=== PATIENT | male | born 1935 | race Caucasian/White ===

== ENCOUNTER 2017-09-11 21:18 | Inpatient (IN) | payer MEDICARE, OTHER ==
[2017-09-11] MEDS: ONDANSETRON 4 MG INJ IV (21:43)
[2017-09-11] MEDS: SODIUM CHLORIDE 0.9% 1L BAG IV* (21:44)
[2017-09-11] MEDS: PIPER-TAZO 3.375 GM IV (PMX) 100 ML IVPB (21:46)
[2017-09-11 22:14] LABS: ABNORMAL IP MESSAGE 1; HEMATOCRIT 36.9 % (42.0-52.0); HEMOGLOBIN 11.3 g/dl (14.0-18.0); MEAN CORPUSCULAR HEMOGLOBIN 28.8 pg (29.0-33.0); MEAN CORPUSCULAR HGB CONC 30.6 g/dl (32.0-37.0); MEAN CORPUSCULAR VOLUME 93.9 fl (82.0-101.0); MEAN PLATELET VOLUME 9.8 fl (7.4-10.4); NUCLEATED RED BLOOD CELLS% 0.1 /100WBC (0.0-0.0); PLATELET COUNT 480 10^3/UL (140-415); POSITIVE DIFF @See below; RED BLOOD COUNT 3.93 10^6/ul (4.70-6.10); RED CELL DISTRIBUTION WIDTH 15.3 % (11.5-14.5)
[2017-09-11 22:14] LABS: WHITE BLOOD COUNT 46.6 10^3/ul (4.8-10.8)
[2017-09-11 22:15] LABS: URINE BLOOD (Dip) POC 2+ (NEGATIVE); URINE GLUCOSE (Dip) POC Negative (NEGATIVE); URINE KETONES (Dip) POC Negative (NEGATIVE); URINE LEUKOCYTE EST (Dip) POC Negative (NEGATIVE); URINE NITRITE (Dip) POC Negative (NEGATIVE); URINE TOTAL PROTEIN POC 2+ (NEGATIVE)
[2017-09-11 22:23] LABS: ADD MAN DIFF? YES; PATH REVIEW? YES
[2017-09-11 22:35] LABS: INR 1.29; PARTIAL THROMBOPLASTIN TIME 27.8 Sec (25.0-35.0); PROTIME 16.3 Sec (11.9-14.9); PT RATIO 1.3
[2017-09-11 22:36] LABS: ALANINE AMINOTRANSFERASE 106 IU/L (13-69); ALBUMIN/GLOBULIN RATIO 1.17; ALKALINE PHOSPHATASE 104 IU/L (42-121); ANION GAP 30 (8-16); ASPARTATE AMINO TRANSFERASE 71 IU/L (15-46); BLOOD UREA NITROGEN 105 mg/dl (7-20); CALCIUM 9.1 mg/dl (8.4-10.2); CARBON DIOXIDE 12 mmol/L (21-31); CHLORIDE 124 mmol/L (97-110); CREATINE KINASE 64 IU/L (23-200); GLUCOSE 378 mg/dl (70-220); SODIUM 160 mmol/L (135-144); TOTAL PROTEIN 7.4 g/dl (6.1-8.1)
[2017-09-11 22:42] LABS: LACTIC ACID 4.9 mmol/L (0.5-2.0)
[2017-09-11 22:44] LABS: POTASSIUM 6.1 mmol/L (3.5-5.1)
[2017-09-11 22:50] LABS: TROPONIN-I 0.154 ng/ml (0.00-0.12)
[2017-09-11 23:05] LABS: ADD UMIC YES; UR AMORPHOUS CRYSTAL FEW /HPF (NONE SEEN); UR ASCORBIC ACID NEGATIVE (NEGATIVE); UR BACTERIA FEW /HPF (NONE SEEN); UR BILIRUBIN (Dip) NEGATIVE (NEGATIVE); UR BLOOD (Dip) 1+ mg/dL (NEGATIVE); UR CLARITY CLOUDY (CLEAR); UR COLOR YELLOW (YELLOW); UR GLUCOSE (Dip) 1+ mg/dL (NEGATIVE); UR KETONES (Dip) NEGATIVE (NEGATIVE); UR LEUKOCYTE ESTERASE (Dip) NEGATIVE Leu/ul (NEGATIVE); UR MUCUS FEW /HPF (NONE SEEN); UR NITRITE (Dip) NEGATIVE (NEGATIVE); UR RBC 10 /HPF (0-5); UR SPECIFIC GRAVITY (Dip) 1.014 (1.003-1.030); UR TOTAL PROTEIN (Dip) 1+ mg/dl (NEGATIVE); UR UROBILINOGEN (Dip) NEGATIVE (NEGATIVE); UR WBC 6 /HPF (0-5)
[2017-09-11 23:06] LABS: THYROID STIMULATING HORMONE 0.773 MIU/L (0.465-4.680)
[2017-09-11 23:11] LABS: ANISOCYTOSIS 2+ (0-0); BURR CELLS 2+ (0-0); LYMPHOCYTES #M 0.9 10^3/ul (0.8-2.9); LYMPHOCYTES % (M) 2 % (15-51); MICROCYTOSIS 2+ (0-0); MONOCYTE #M 0.4 10^3/ul (0.3-0.9); MONOCYTES % (M) 1 % (0-11); PLATELET MORPHOLOGY COMMENT @See below; POIKILOCYTOSIS 3+ (0-0); POLYCHROMASIA 1+ (0-0); SEGMENTED NEUTROPHILS (M) % 97 % (39-77)
[2017-09-11] MEDS: INSULIN REGULAR, HUMAN 100 UNIT/1 ML 3ML VIAL IVP (23:14)
[2017-09-11] MEDS: DEXTROSE 50% 50 ML SYRINGE IV (23:47)
[2017-09-11] MEDS: CALCIUM GLUCONATE 10% 1 GM in DEXTROSE 5% 100 ML IVPB (23:48)
[2017-09-12] MEDS: LORAZEPAM 2 MG INJ IV (00:29)
[2017-09-12] MEDS: morphine 4 MG/ML VIAL IV (00:29)
[2017-09-12] MEDS: ASPIRIN 300 MG SUPP PR (00:38)
[2017-09-12 00:42] LABS: LACTIC ACID 4.6 mmol/L (0.5-2.0)
[2017-09-12] MEDS: INSULIN REGULAR, HUMAN 100 UNIT/1 ML 3ML VIAL SC (01:52)
[2017-09-12] MEDS ORDERED: NA BICARBONATE 8.4% 50 ML SYG (03:38)
[2017-09-12] MEDS: NA BICARBONATE 8.4% 50 ML SYG IV (04:00)
[2017-09-12] MEDS: LEVALBUTEROL (NEB) 0.63 MG/3 ML AMP HHN ×2 (04:56→08:16)
[2017-09-12] MEDS ORDERED: LEVALBUTEROL (NEB) 0.63 MG/3 ML AMP HHN (05:30)
[2017-09-12] MEDS ORDERED: morphine 2 MG INJ IV (05:30)
[2017-09-12] MEDS ORDERED: IPRATROPIUM (NEB) 0.5 MG/2.5 ML AMP NEB (05:30)
[2017-09-12] MEDS ORDERED: LORAZEPAM 2 MG INJ IV (05:30)
[2017-09-12] MEDS ORDERED: ONDANSETRON 4 MG INJ IV (05:30)
[2017-09-12] MEDS ORDERED: NACL 0.9% 3 ML SYG IV (05:30)
[2017-09-12] MEDS ORDERED: GLUCOSE GEL 15 GRAM TUBE BUCCAL (06:00)
[2017-09-12] MEDS ORDERED: DEXTROSE 50% 50 ML SYRINGE IV ×2 (06:00)
[2017-09-12] MEDS ORDERED: GLUCOSE GEL 15 GRAM TUBE PO ×2 (06:00)
[2017-09-12] MEDS ORDERED: GLUCAGON 1 MG INJ IM (06:00)
[2017-09-12] MEDS: DEXTROSE 5% 1,000 ML IV (06:27)
[2017-09-12] MEDS: INSULIN GLARGINE [LANtus] 3 ML PEN SC ×2 (06:32→07:49)
[2017-09-12] MEDS ORDERED: VANCOMYCIN 750 MG in DEXTROSE 5% 150 ML IVPB (07:30)
[2017-09-12 08:25] LABS: WHITE BLOOD COUNT 62.5 10^3/ul (4.8-10.8)
[2017-09-12 08:25] LABS: ABNORMAL IP MESSAGE 1; HEMATOCRIT 32.9 % (42.0-52.0); HEMOGLOBIN 9.7 g/dl (14.0-18.0); MEAN CORPUSCULAR HEMOGLOBIN 28.9 pg (29.0-33.0); MEAN CORPUSCULAR HGB CONC 29.5 g/dl (32.0-37.0); MEAN CORPUSCULAR VOLUME 97.9 fl (82.0-101.0); MEAN PLATELET VOLUME 10.4 fl (7.4-10.4); NUCLEATED RED BLOOD CELLS% 0.2 /100WBC (0.0-0.0); PLATELET COUNT 446 10^3/UL (140-415); POSITIVE DIFF @See below; RED BLOOD COUNT 3.36 10^6/ul (4.70-6.10); RED CELL DISTRIBUTION WIDTH 15.6 % (11.5-14.5)
[2017-09-12] MEDS: VANCOMYCIN 1 GM 250 ML IVPB (08:26)
[2017-09-12 08:36] LABS: ADD MAN DIFF? YES
[2017-09-12 08:55] LABS: LACTIC ACID 11.1 mmol/L (0.5-2.0)
[2017-09-12 09:00] LABS: ALANINE AMINOTRANSFERASE 130 IU/L (13-69); ALBUMIN 3.3 g/dl (3.3-4.9); ALBUMIN/GLOBULIN RATIO 1.17; ALKALINE PHOSPHATASE 65 IU/L (42-121); ANION GAP 35 (8-16); ASPARTATE AMINO TRANSFERASE 81 IU/L (15-46); BILIRUBIN,INDIRECT 0.1 mg/dl (0-1.1); BILIRUBIN,TOTAL 0.1 mg/dl (0.2-1.3); BLOOD UREA NITROGEN 106 mg/dl (7-20); CALCIUM 8.9 mg/dl (8.4-10.2); CHLORIDE 127 mmol/L (97-110); GLUCOSE 197 mg/dl (70-220); POTASSIUM 5.7 mmol/L (3.5-5.1); TOTAL PROTEIN 6.1 g/dl (6.1-8.1)
[2017-09-12] MEDS ORDERED: INSULIN ASPART [NOVOLOG] 3 ML PEN SC (09:00)
[2017-09-12] MEDS ORDERED: CEFEPIME 1GM/50 ML (PMX) 50 ML IVPB (09:00)
[2017-09-12] MEDS ORDERED: VANCOMYCIN IV PER PHARMACY XX (09:00)
[2017-09-12 09:01] LABS: SODIUM 166 mmol/L (135-144)
[2017-09-12 09:02] LABS: CARBON DIOXIDE 10 mmol/L (21-31)
[2017-09-12 09:35] LABS: ANISOCYTOSIS 2+ (0-0); BAND NEUTROPHILS #M 15.6 10^3/ul (0.0-0.6); BAND NEUTROPHILS % (M) 25 % (0-4); BURR CELLS 2+ (0-0); LYMPHOCYTES #M 1.2 10^3/ul (0.8-2.9); LYMPHOCYTES % (M) 2 % (15-51); MICROCYTOSIS 1+ (0-0); MONOCYTE #M 2.5 10^3/ul (0.3-0.9); MONOCYTES % (M) 4 % (0-11); PLATELET ESTIMATE INCREASED; POIKILOCYTOSIS 2+ (0-0); POLYCHROMASIA 2+ (0-0); SEG NEUT #M 52.9 10^3/ul (1.6-7.5); SEGMENTED NEUTROPHILS (M) % 69 % (39-77); SMUDGE%M 1 % (0-0)
[2017-09-13] MEDS ORDERED: ACCU-CHEK XX (02:00)
== END 2017-09-12 09:25 | disposition expired | DRG 871 ==
LOC: MS4 09-12 00:01 → E/R 21:18
DX: A41.9 Sepsis, unspecified organism (principal); R65.21 Severe sepsis with septic shock; G93.49 Other encephalopathy; N39.0 Urinary tract infection, site not specified; E87.1 Hypo-osmolality and hyponatremia; Z66 Do not resuscitate; E87.5 Hyperkalemia; R73.9 Hyperglycemia, unspecified; R74.8 Abnormal levels of other serum enzymes; R79.9 Abnormal finding of blood chemistry, unspecified; G30.9 Alzheimer's disease, unspecified; F02.80 Dementia in other diseases classified elsewhere, unspecified severity, without behavioral disturbance, psychotic disturbance, mood disturbance, and anxiety; I10 Essential (primary) hypertension; N19 Unspecified kidney failure; R09.02 Hypoxemia
CPT/HCPCS: 36415; 70450; 71045; 80053; 81001; 81003; 82550; 82962; 83605; 84443; 84484; 85025; 85610; 85730; 87040; 87086; 93005; 94640; 94664; 96372; 96374; 96375; 99291-25